=== PATIENT | male | born 1965 | race African-American/Black ===

== ENCOUNTER 2017-06-27 18:12 | Emergency (ER) | payer OTHER ==
[~2017-06-27] VITALS: Ht 182.9 cm; Wt 128.7 kg
[2017-06-27 18:16] VITALS: TEMP 37.3; Ht 182.9 cm; Wt 128.7 kg
[2017-06-27] MEDS ORDERED: FENTANYL CITRATE INJ 50 MCG/1 ML 2 ML VIAL IV STA (18:26)
--- NOTE | 2017-06-27 18:46 | EMERGENCY ROOM VISIT NOTE ---
History Report prepared by Michael: Minerva Jorge Under the Supervision of: Dr. Burt Crawley M.D. First contact with patient: 18:19 Chief Complaint: FACIAL PAIN/INJURY Stated Complaint: FACIAL TRAUMA, JAW PAIN History of Present Illness The patient is a 52 year old black male with no significant past medical history who presents to the ED with a cc of persistent facial pain beginning 1315 yesterday. The patient slipped in the shower and hit his left jaw. Positive left jaw pain, dental pain. Negative LOC, chest pain, abdominal pain, arm pain, leg pain. He is not on any blood thinners. Source of History: patient Onset: 1315 yesterday Position: other (facial) Quality: other (injury, pain) Timing: other (persistent) Associated Symptoms: No LOC, No chest pain, No abdominal pain Note: Pt has left jaw pain, dental pain. Pt denies arm pain, leg pain. Review of Systems See HPI for pertinent positives and negatives. A total of ten systems were reviewed and were otherwise negative. Family History No pertinent family history stated. Social History Smoking Status: Never Smoker Housing Status: other (long-term) Current/Historical Medications Scheduled Amoxicillin & Pot Clavulanate (Augmentin 875-125 mg), 875 MG PO BID Chlorhexidine Gluconate (Peridex Oral Soln), 5 ML PO BID Tramadol Hcl (Ultram), 50 MG PO Q8H Scheduled PRN Oxycodone Immediate Rel Tab (Roxicodone Ir), 5 MG PO Q4H PRN for Severe Pain Allergies Coded Allergies: No Known Allergies (Unverified , 06/27/17) Physical Exam Vital Signs Date Time Temp Pulse Resp B/P (MAP) Pulse Ox O2 Delivery O2 Flow Rate FiO2 06/27/17 21:45 60 16 134/72 97 Room Air 06/27/17 20:00 64 16 143/67 97 Room Air 06/27/17 18:16 37.3 63 16 161/102 99 Room Air Physical Exam GENERAL: Awake, alert, well-appearing, NAD HENT: Tenderness to the right ZMC. Some pain to the maxillary area. Pain to the lower mandible. Missing tooth in the right lower mandible with some dried blood. EYES: Normal conjunctiva. Sclera non-icteric. NECK: Supple. No nuchal rigidity. FROM. RESPIRATORY: CTAB, no rhonchi, wheezing, crackles CARDIAC: RRR, no MRG ABDOMEN: Soft, NTND, BS+ MSK: No pain to the neck, head, chest, abdomen, and extremities. NEURO: GCS 15, CN 2-12 intact, moves all 4s on command SKIN: No rash or jaundice noted. Medical Decision & Procedures ER Provider Diagnostic Interpretation: Radiology results as stated below per my review and radiologist interpretation: HEAD WITHOUT CONTRAST (CT) CLINICAL HISTORY: 52 years-old Male with EVALUATE FOR TRAUMA/INJURY. Acute head injury status post fall TECHNIQUE: Multiple axial CT images of the head were obtained without contrast. A dose lowering technique was utilized adhering to the principles of ALARA. CT DOSE: 960.62 mGy.cm COMPARISON: None. FINDINGS: No acute intracranial hemorrhage, midline shift, intracranial mass, hydrocephalus, territorial ischemia or abnormal extra-axial collection. Mild bifrontal cerebral atrophy. The calvarium is intact. The mastoid air cells, and middle ear cavities are clear. Mild mucosal thickening is noted within the ethmoid air cells. Mild leftward bowing and spurring of the nasal septum. Suggestion of mandibular body fracture on the trailer rental clerk images. IMPRESSION: 1. No acute intracranial abnormality. 2. No calvarial fracture. 3. Suggestion of a mandibular body fracture on the trailer rental clerk images. Please refer to CT maxillofacial of same day for further details. The above report was generated using voice recognition software. It may contain grammatical, syntax or spelling errors. Electronically signed by: Sundeep Hurtado M.D. 06/27/2017 8:04 PM Dictated Date/Time: 06/27/2017 8:01 PM FACIAL BONES-MXILLOFAC WITHOUT CLINICAL HISTORY: 52 years-old Male presenting with EVALUATE FOR TRAUMA/INJURY. Acute facial pain status post fall COMPARISON STUDY: CT head of same day TECHNIQUE: High-resolution CT scan of the facial bones is performed. Images are reviewed in the axial, sagittal, and coronal planes. IV contrast was not administered for this examination. A dose lowering technique was utilized adhering to the principles of ALARA. FINDINGS: The bony orbits are intact and the orbital contents are within normal limits. The zygomatic arches, nasal bones, and pterygoid plates are preserved. There is an acute obliquely oriented fracture of the left mandibular ramus which traverses the mandibular foramen with distal portion of the mandible displaced medially 5 mm and displaced superiorly 9 mm. Additionally, there is an acute nondisplaced fracture of the right mandibular body with fracture line extending through the root of the right first maxillary molar which demonstrates a displaced fracture of the anterior root, nicely seen on the coronal images. Multiple small periapical cysts are noted throughout the teeth. Moderate soft tissue swelling about the jaw, left greater than right. There is swelling of the left submandibular gland. The mastoid air cells are clear. Mild mucosal thickening of the ethmoid air cells. Hypoplasia of the frontal sinuses. Metopic suture noted. Sclerotic foci of the frontal bone suggest possible bone islands. The imaged calvarium and upper cervical spine are within normal limits. Partially imaged brain parenchyma is within normal limits. IMPRESSION: 1. Acute obliquely oriented displaced fracture of the left mandibular ramus fracture traverses the mandibular foramen. Moderate associated soft tissue swelling. 2. Acute nondisplaced fracture of the right mandibular body extends into the root of the right first maxillary molar fracturing the tooth as above. This type of injury is an open fracture equivalent. The above report was generated using voice recognition software. It may contain grammatical, syntax or spelling errors. Electronically signed by: Sundeep Hurtado M.D. 06/27/2017 8:31 PM Dictated Date/Time: 06/27/2017 8:11 PM Laboratory Results 06/27/17 19:35 Red Blood Count 5.22, Mean Corpuscular Volume 76.8, Mean Corpuscular Hemoglobin 26.2, Mean Corpuscular Hemoglobin Concent 34.2, Neutrophils (%) (Auto) 83.5, Lymphocytes (%) (Auto) 9.2, Monocytes (%) (Auto) 6.8, Eosinophils (%) (Auto) 0.1 , Basophils (%) (Auto) 0.1, Neutrophils # (Auto) 13.61, Lymphocytes # (Auto) 1.50, Monocytes # (Auto) 1.11, Eosinophils # (Auto) 0.01, Basophils # (Auto) 0.01 06/27/17 19:35 Test 06/27/17 19:35 White Blood Count 16.29 K/uL (4.8-10.8) Red Blood Count 5.22 M/uL (4.7-6.1) Hemoglobin 13.7 g/dL (14.0-18.0) Hematocrit 40.1 % (42-52) Mean Corpuscular Volume 76.8 fL (80-100) Mean Corpuscular Hemoglobin 26.2 pg (25-34) Mean Corpuscular Hemoglobin Concent 34.2 g/dl (32-36) Platelet Count 157 K/uL (130-400) Neutrophils (%) (Auto) 83.5 % Lymphocytes (%) (Auto) 9.2 % Monocytes (%) (Auto) 6.8 % Eosinophils (%) (Auto) 0.1 % Basophils (%) (Auto) 0.1 % Neutrophils # (Auto) 13.61 K/uL (1.4-6.5) Lymphocytes # (Auto) 1.50 K/uL (1.2-3.4) Monocytes # (Auto) 1.11 K/uL (0.11-0.59) Eosinophils # (Auto) 0.01 K/uL (0-0.5) Basophils # (Auto) 0.01 K/uL (0-0.2) RDW Standard Deviation 42.3 fL (36.4-46.3) RDW Coefficient of Variation 15.0 % (11.5-14.5) Immature Granulocyte % (Auto) 0.3 % Immature Granulocyte # (Auto) 0.05 K/uL (0.00-0.02) Platelet Estimate NORMAL Red Blood Cell Morphology Unremarkable Prothrombin Time 10.8 SECONDS (9.0-12.0) Prothromb Time International Ratio 1.0 (0.9-1.1) Activated Partial Thromboplast Time 26.4 SECONDS (21.0-31.0) Partial Thromboplastin Ratio 1.0 Anion Gap 6.0 mmol/L (3-11) Est Creatinine Clear Calc Drug Dose 114.1 ml/min Estimated GFR () 94.1 Estimated GFR (Non- 81.2 BUN/Creatinine Ratio 10.1 (10-20) Calcium Level 8.9 mg/dl (8.5-10.1) Laboratory results reviewed by me Medications Administered Medications (Trade) Dose Ordered Sig/Tati Route Start Time Stop Time Status Last Admin Dose Admin Fentanyl Citrate (Fentanyl Inj) 100 mcg NOW STAT IV 06/27/17 18:26 06/27/17 18:28 DC 06/27/17 19:21 100 MCG Ampicillin Sodium/ Sulbactam Sodium 3000 mg/Sodium Chloride 108 ml @ 200 mls/hr NOW STAT IV 06/27/17 20:39 06/27/17 21:11 DC 06/27/17 21:08 200 MLS/HR Hydromorphone HCl (Dilaudid Inj) 1 mg NOW STAT IV 06/27/17 21:04 06/27/17 21:05 DC 06/27/17 21:14 1 MG Acetaminophen/ Hydrocodone Bitart ([place] 5/325 Tab) 1 tab ONE STAT PO 06/27/17 21:04 06/27/17 21:05 DC 06/27/17 21:14 1 TAB Ketorolac Tromethamine (Toradol Inj) 30 mg NOW STAT IV 06/27/17 21:04 06/27/17 21:05 DC 06/27/17 21:13 30 MG ED Course 1820: The patient was evaluated in room B10. A complete history and physical exam was performed. 2058: I discussed the patients case with Ganga Staton facial trauma. He states the patient can be seen tomorrow in the clinic. He recommends pain control and antibiotics. 2142: I reevaluated the patient. Discussed results and discharge instructions: He verbalized understanding and agreement. The patient is ready for discharge. Medical Decision The patient is a 52 year old black male with no significant past medical history who presents to the ED with a cc of persistent facial pain beginning 1314 yesterday. Differential diagnosis: fracture, sprain, strain, ICH, concussion, dislocation. Patient was seen and evaluated the bedside. Patient is a 52[facility] reportedly had a fall on the shower yesterday around 1 PM yesterday. Patient states he didn't have any issues until today when he noticed more pain. On exam the patient does have bilateral mandibular as well as maxillary pain. Patient is able to shut his jaw but does have femoral pain. Patient does have a noticeable absent tooth in the right mandibular area. There is clotted blood in the socket. He had no midline C- spine tenderness and no pain to the head. Patient does not take any blood thinning medications. He denies any LOC. Patient has no other pain to the extremities, chest, back, or abdomen. Patient did have CT of head and CT face completed. Patient didn't have noted mandibular fractures that were open. I did discuss the patient with facial trauma surgeon at [facility]. He did state that he agrees with the current plan of care and that he could be seen either tomorrow or the following day in the office. He agreed with sending the patient home on Augmentin and pain medication. Upon reevaluation of the patient he was still in pain. Patient was given additional medications. Of note the patient is able to swallow. Patient was told that he will require a soft diet. I did discuss the patient with the shelter case manager. They stated they were unable to obtain a current appointment however, the long-term will arrange for a follow-up appointment tomorrow. Patient was informed of all findings as well as medications to be taken. Patient was agreeable with plan of care. Patient was safely discharged back to long-term. Head Trauma GCS Score: 15 Medication Reconcilliation Current Medication List: was personally reviewed by me Blood Pressure Screening Patient's blood pressure: Elevated blood pressure Blood pressure disposition: Elevated BP felt to be situational Consults Time Called: 2044 Consulting Physician: Dr. Ca, [facility] facial trauma Returned Call: [phone] I discussed the patient's case with him. He states the patient can be seen tomorrow in the clinic. He recommends pain control and antibiotics. Impression Primary Impression: Bilateral mandibular fracture Additional Impression: Facial trauma Scribe Attestation The scribe's documentation has been prepared under my direction and personally reviewed by me in its entirety. I confirm that the note above accurately reflects all work, treatment, procedures, and medical decision making performed by me. Departure Information Dispostion Home / Self-Care Prescriptions Tramadol Hcl (ULTRAM) 50 Mg Tab 50 MG PO Q8H, #12 TAB PRN PAIN Prov: Burt Crawley M.D. 06/27/17 Oxycodone Immediate Rel Tab (ROXICODONE IR) 5 Mg Tab 5 MG PO Q4H Y for Severe Pain, #15 TAB Prov: Burt Crawley M.D. 06/27/17 Chlorhexidine Gluconate (PERIDEX ORAL SOLN) 480 Ml Soln 5 ML PO BID, #60 ML Prov: Burt Crawley M.D. 06/27/17 Amoxicillin & Pot Clavulanate (Augmentin 875-125 mg) 1 Tab Tab 875 MG PO BID for 7 Days, #14 TAB Prov: Burt Crawley M.D. 06/27/17 Referrals Dusty KAPOOR (PCP) Patient Instructions ED Fx Mandible, My [facility] Additional Instructions Please return to the emergency department if you have worsening or recurrent symptoms not amenable to at-home treatment. Please call for a follow-up appointment with her primary care physician. Please take your medications as prescribed. If you have other concerns and/or complaints please feel free to also call your primary care physician's office or return the ED for further evaluation, management, and treatment. You may take 600 mg Ibuprofen every 6 hours as needed for pain with food for no more than 2 consecutive days. You may take tylenol 1000 mg every 6 hours as needed for pain. You may take motrin and tylenol separately or at the same time. Take your medications as prescribed. If taking an antibiotic consider taking a probiotic and/or eating yogurt, but at the least, please take with food as it can cause upset stomach. You have been examined and treated today on an emergency basis only. This is not a substitute for, or an effort to provide, complete comprehensive medical care. It is impossible to recognize and treat all injuries or illnesses in a single emergency department visit. It is therefore important that you follow up closely with [facility], your PCP, and/or your specialist(s). Call as soon as possible for an appointment. Thank you for your time and consideration. I look forward to speaking with you again soon. Please don't hesitate to call us if you have any questions. Problem Qualifiers Primary Impression: Bilateral mandibular fracture Encounter type: initial encounter Fracture type: open Qualified Codes: S02.609B - Fracture of mandible, unspecified, initial encounter for open fracture Additional Impression: Facial trauma Encounter type: initial encounter Qualified Codes: S09.93XA - Unspecified injury of face, initial encounter
[2017-06-27 19:43] LABS: MEAN CORPUSCULAR HGB CONC 34.2 g/dl (32-36)
[2017-06-27 19:53] LABS: PROTHROMBIN TIME (PATIENT) 10.8 SECONDS (9.0-12.0)
[2017-06-27 20:04] LABS: HEMATOCRIT 40.1 % (42-52); MEAN CELL VOLUME 76.8 fL (80-100); MEAN CORPUSCULAR HEMOGLOBIN 26.2 pg (25-34); RED BLOOD COUNT 5.22 M/uL (4.7-6.1); WHITE BLOOD COUNT 16.29 K/uL (4.8-10.8)
--- NOTE | 2017-06-27 20:05 | DIAGNOSTIC IMAGING REPORT ---
HEAD WITHOUT CONTRAST (CT) CLINICAL HISTORY: 52 years-old Male with EVALUATE FOR TRAUMA/INJURY. Acute head injury status post fall TECHNIQUE: Multiple axial CT images of the head were obtained without contrast. A dose lowering technique was utilized adhering to the principles of ALARA. CT DOSE: 960.62 mGy.cm COMPARISON: None. FINDINGS: No acute intracranial hemorrhage, midline shift, intracranial mass, hydrocephalus, territorial ischemia or abnormal extra-axial collection. Mild bifrontal cerebral atrophy. The calvarium is intact. The mastoid air cells, and middle ear cavities are clear. Mild mucosal thickening is noted within the ethmoid air cells. Mild leftward bowing and spurring of the nasal septum. Suggestion of mandibular body fracture on the stacking machine operator images. IMPRESSION: 1. No acute intracranial abnormality. 2. No calvarial fracture. 3. Suggestion of a mandibular body fracture on the stacking machine operator images. Please refer to CT maxillofacial of same day for further details. The above report was generated using voice recognition software. It may contain grammatical, syntax or spelling errors. Electronically signed by: Sundeep Hurtado M.D. 06/27/2017 8:04 PM Dictated Date/Time: 06/27/2017 8:01 PM
[2017-06-27 20:07] LABS: PLATELET COUNT 157 K/uL (130-400)
[2017-06-27 20:08] LABS: BUN/CREATININE RATIO 10.1 (10-20); CALCIUM 8.9 mg/dl (8.5-10.1); CREATININE 1.05 mg/dl (0.60-1.40); POTASSIUM 4.1 mmol/L (3.5-5.1)
[2017-06-27 20:09] LABS: BASO % 0.1 %; BASO ABS # 0.01 K/uL (0-0.2); COMPLETE YES; EOS % 0.1 %; IG% 0.3 %; LYMPH % 9.2 %; MONO % 6.8 %; NEUT % 83.5 %; PLT ESTIMATE NORMAL
--- NOTE | 2017-06-27 20:32 | DIAGNOSTIC IMAGING REPORT ---
FACIAL BONES-MXILLOFAC WITHOUT CLINICAL HISTORY: 52 years-old Male presenting with EVALUATE FOR TRAUMA/INJURY. Acute facial pain status post fall COMPARISON STUDY: CT head of same day TECHNIQUE: High-resolution CT scan of the facial bones is performed. Images are reviewed in the axial, sagittal, and coronal planes. IV contrast was not administered for this examination. A dose lowering technique was utilized adhering to the principles of ALARA. FINDINGS: The bony orbits are intact and the orbital contents are within normal limits. The zygomatic arches, nasal bones, and pterygoid plates are preserved. There is an acute obliquely oriented fracture of the left mandibular ramus which traverses the mandibular foramen with distal portion of the mandible displaced medially 5 mm and displaced superiorly 9 mm. Additionally, there is an acute nondisplaced fracture of the right mandibular body with fracture line extending through the root of the right first maxillary molar which demonstrates a displaced fracture of the anterior root, nicely seen on the coronal images. Multiple small periapical cysts are noted throughout the teeth. Moderate soft tissue swelling about the jaw, left greater than right. There is swelling of the left submandibular gland. The mastoid air cells are clear. Mild mucosal thickening of the ethmoid air cells. Hypoplasia of the frontal sinuses. Metopic suture noted. Sclerotic foci of the frontal bone suggest possible bone islands. The imaged calvarium and upper cervical spine are within normal limits. Partially imaged brain parenchyma is within normal limits. IMPRESSION: 1. Acute obliquely oriented displaced fracture of the left mandibular ramus fracture traverses the mandibular foramen. Moderate associated soft tissue swelling. 2. Acute nondisplaced fracture of the right mandibular body extends into the root of the right first maxillary molar fracturing the tooth as above. This type of injury is an open fracture equivalent. The above report was generated using voice recognition software. It may contain grammatical, syntax or spelling errors. Electronically signed by: Sundeep Hurtado M.D. 06/27/2017 8:31 PM Dictated Date/Time: 06/27/2017 8:11 PM
[2017-06-27] MEDS ORDERED: AMPICILLIN/SULBACTAM SOD INJ 3,000 MG in SODIUM CHLORIDE 0.9% 100ML 100 ML IV STA (20:39)
[2017-06-27] MEDS ORDERED: HYDROCODONE/ACETAMOPHEN 5/325MG TAB PO STA (21:04)
[2017-06-27] MEDS ORDERED: KETOROLAC TROMETHAMINE 30 MG/ML VIAL IV STA (21:04)
[2017-06-27] MEDS ORDERED: HYDROmorphone INJ 1 MG/ML SYR IV STA (21:04)
[2017-06-27] MEDS ORDERED: PRDXLUD PO (21:29)
[2017-06-27] MEDS ORDERED: AMOX875T PO (21:29)
[2017-06-27] MEDS ORDERED: OXYC1TAB3 PO (21:29)
[2017-06-27] MEDS ORDERED: TRAM-453 PO (21:29)
[2017-06-27 22:30] VITALS: BP 115/76; PULSE 88; O2SAT 98
== END 2017-06-27 22:31 | disposition home or self-care (01) ==
LOC: C.EDB 18:13
DX: S02.642B Fracture of ramus of left mandible, initial encounter for open fracture (principal); S02.601B Fracture of unspecified part of body of right mandible, initial encounter for open fracture; S09.93XA Unspecified injury of face, initial encounter; W01.0XXA Fall on same level from slipping, tripping and stumbling without subsequent striking against object, initial encounter; Y92.142 Bathroom in prison as the place of occurrence of the external cause